=== PATIENT | female | born 1985 | race Caucasian/White ===

== ENCOUNTER → 2016-11-16 | Outpatient (CLI) | payer BC ==
[~2016-11-16] MED LIST: MOTRIN600 M1 PO; NO MEDICATIONS
--- NOTE | ~2016-11-16 | EE ---
Unit #: [id number]: [id number] Patient: SAURABH WISE [id number] [address] [address] [id number] O MR#: [id number] NAME: SAURABH WISE : 1985 SEX: F STUDY DATE/TIME: 11/16/2016 UNIT: CEEG ROOM: STUDY DESCRIPTION: EEG Attending Physician: Samir Alcocer Referring Physician: Samir Alcocer Primary Care Physician: Kiana Bustos A.P.R.N. NEURODIAGNOSTICS REPORT EXAM EEG. REASON FOR STUDY Epilepsy. EEG DESCRIPTION This is an outpatient, digitally recorded, multi-montage adult EEG with leads placed according to the International 10-20 system. Hyperventilation and photic stimulation were attempted. With the patient fully aroused, there is 9-10 Hz posterior dominant alpha rhythm, which is symmetric and attenuates with eyes opening. The patient did become drowsy and later on stage 2 sleep was seen. Hyperventilation was attempted, but I did not see any significant changes. Photic stimulation was attempted in an intermittent stepwise pattern up to the flash frequency of 30 Hz, but I did not see any driving, asymmetry, or paroxysmal activity. There was some activity at 11 Hz, though bilateral, symmetric. IMPRESSION This is an essentially normal adult awake and asleep EEG. EEG like this does not rule out epilepsy. Clinical correlation is recommended. Dictated by... Beto Suarez/se TD: 11/21/2016 07:14 JOB #: [id number] Unit #: [id number] #: [id number] Patient: SAURABH WISE NEURODIAGNOSTICS REPORT Page 1 of 1 X Hector Bruce MD NEURODIAGNOSTICS REPORT
== END | disposition home or self-care (01) ==
LOC: CEEG 10:54
DX: G40.B09 Juvenile myoclonic epilepsy, not intractable, without status epilepticus (principal)
CPT/HCPCS: 95816